=== PATIENT | female | born 1975 | race Caucasian/White ===

== ENCOUNTER 2017-02-20 11:55 | Emergency (ER) | payer OTHER ==
[~2017-02-20 11:55] MED LIST: ASPIRIN EC81 MG PO; BRILINTA 90 MG90 MG PO; HABITROL 14 MG P1 EA TD; HABITROL 21 MG P1 EA TD; IBUPROFEN400 MG PO; ISORDIL TAB 3030 MG PO; LIPITOR TAB 2020 MG PO; LISINOPRIL5 MG PO; LOPRESSOR 25 MG25 MG PO; NITROGLYCERIN0.4 MG SL; PAXIL 20 MG TAB20 MG PO; ZOFRAN ODT4 MG PO
[2017-02-20 12:33] LABS: HEMOGLOBIN 11.1 gm/dl (12.3-15.3); RED BLOOD COUNT 3.79 M/UL (4.00-5.10); WHITE BLOOD COUNT 10.1 K/UL (4.5-11.0)
[2017-02-20 13:03] LABS: BUN/CREATININE RATIO 12 (0-10)
== END 2017-02-20 16:50 | disposition home or self-care (01) ==
LOC: ER1 11:55
PROVIDERS: Emergency Medicine
DX: R07.9 Chest pain, unspecified (principal); I25.10 Atherosclerotic heart disease of native coronary artery without angina pectoris; I25.2 Old myocardial infarction; F17.210 Nicotine dependence, cigarettes, uncomplicated
CPT/HCPCS: 36415; 71010; 80053; 80307; 81001; 82550; 82553; 83874; 83880; 84484; 84703; 85025; 85379; 87086; 93005; 96374; 99285; J2405

== ENCOUNTER 2017-04-03 10:49 | Emergency (ER) | payer OTHER ==
[2017-04-03 13:11] LABS: HEMOGLOBIN 10.6 gm/dl (12.3-15.3); RED BLOOD COUNT 3.81 M/UL (4.00-5.10); WHITE BLOOD COUNT 10.6 K/UL (4.5-11.0)
== END 2017-04-03 17:02 | disposition home or self-care (01) ==
LOC: ER1 10:49
PROVIDERS: Family Medicine
DX: J06.9 Acute upper respiratory infection, unspecified (principal); F17.210 Nicotine dependence, cigarettes, uncomplicated; I11.9 Hypertensive heart disease without heart failure; I25.10 Atherosclerotic heart disease of native coronary artery without angina pectoris
CPT/HCPCS: 71020; 80053; 82550; 82553; 83874; 83880; 84484; 85025; 87081; 87880; 94664; 96374; 99284; J2405